=== PATIENT | male | born 1960 | race Caucasian/White ===

== ENCOUNTER 2023-02-12 12:56 | Emergency (ER) | payer OTHER, SELFPAY ==
--- NOTE | 2023-02-12 12:58 | CT_ITS ---
FINAL REPORT TECHNIQUE: Axial images through the head was performed by computed tomography. Sagittal and coronal reformatted images were obtained and reviewed. This study was performed with techniques to keep radiation doses as low as reasonably achievable (ALARA). Individualized dose reduction techniques using automated exposure control or adjustment of mA and/or kV according to the patient's size were employed. CLINICAL HISTORY: fall, LOC FINDINGS: No abnormal density is seen. Ventricles are normal. There is no hemorrhage. No mass effect is seen. Bone windows show no evidence of fracture. IMPRESSION: No acute findings Reviewed, Interpreted and Dictated by Beth Choi MD Transcribed by Linnea Linares Authenticated and [facility]
--- NOTE | 2023-02-12 12:58 | ECG_ITS ---
APPROVED REPORT Exam: Resting ECG HR:63 bpm ECG Measurements Heart Rate 63 AXES NH 213 P 68 QRSd 165 QRS 60 QT 434 T 11 QTc 442 Conclusion SINUS RHYTHM WITH FIRST DEGREE AV BLOCK RIGHT BUNDLE BRANCH BLOCK [120+ ms QRS DURATION, UPRIGHT V1, 40+ ms S IN I/aVL/V4/V5/V6] ABNORMAL ECG UNCONFIRMED REPORT Electronically signed by : Julius Tam MD 02/13/2023 21:16:26
--- NOTE | 2023-02-12 12:59 | CT_ITS ---
FINAL REPORT CLINICAL HISTORY: fall, c spine injury FINDINGS: CTA HEAD TECHNIQUE: Thin section axial CT with contrast with 3D MIP reconstruction FINDINGS: No aneurysm is seen. Major intracranial vessels are patent without significant stenosis. . IMPRESSION: Unremarkable This study was performed using automated techniques to achieve radiation exposure as low as reasonably achievable Reviewed, Interpreted and Dictated by Beth Choi MD Transcribed by Linnea Linares Authenticated and [facility]
--- NOTE | 2023-02-12 12:59 | CT_ITS ---
FINAL REPORT CLINICAL HISTORY: fall, c spine injury FINDINGS: CT NECK ANGIO, WITHOUT AND WITH CONTRAST TECHNIQUE: Thin section axial CT with IV contrast supplemented with 3D MIP reconstruction NASCET criteria and technique was utilized during interpretation. FINDINGS: Aortic arch: Arch shows no significant narrowing. Great vessel origins are widely patent. Right carotid: No significant stenosis is seen of the cervical common or internal carotid artery. There is no evidence of dissection. Left carotid: No significant stenosis is seen of the cervical common or internal carotid artery. There is no evidence of dissection. Vertebrals: Left vertebral artery is dominant. No significant stenosis is present. IMPRESSION: No significant stenosis of the cervical carotid arteries. This study was performed using automated techniques to achieve radiation exposure as low as reasonably Reviewed, Interpreted and Dictated by Beth Choi MD Transcribed by Linnea Linares Authenticated and . [facility]
--- NOTE | 2023-02-12 12:59 | CT_ITS ---
FINAL REPORT TECHNIQUE: Thin section axial CT with sagittal reconstruction without contrast. This study was performed with techniques to keep radiation doses as low as reasonably achievable (ALARA). Individualized dose reduction techniques using automated exposure control or adjustment of mA and/or kV according to the patient's size were employed. CLINICAL HISTORY: fall, c spine injury with weakness FINDINGS: There are mild diffuse degenerative changes. There is grade 1 spondylolisthesis of C5 on 6 with facet subluxation on the right and facet dislocation on the left. There is a fracture of the left C6 inferior facet. Remaining levels show normal alignment. There is a small corner fracture of the anterior/superior C6 vertebral body. IMPRESSION: Right sided facet subluxation and left-sided facet dislocation at the C5-6 level. Small corner fracture of the anterior/superior C6 vertebral body. Reviewed, Interpreted and Dictated by Beth Choi MD Transcribed by Linnea Linares Authenticated and [facility]
[2023-02-12 13:05] VITALS: BP 179/94; PULSE 64; RESP 16; TEMP 36.1; O2SAT 100; BMI 26.2
--- NOTE | 2023-02-12 13:15 | PC.NURSE ---
Per , approved to CT patient without renal function results.
--- NOTE | 2023-02-12 13:15 | HMH.EDGENADL ---
Discharge Plan Disposition Patient Disposition: Xfer Intermediate Care Fac Referrals Follow up/Referrals: Provider,Referral, MD [Primary Care Provider] - See instructions Clinical Impressions Clinical Impression: Traumatic dislocation of facet joint between fifth and sixth cervical vertebrae, Fracture of cervical spine at C5-C7 level with spinal cord injury Stand Alone Forms Stand Alone Forms: Transfer Record - ED Instructions Patient Instructions: DI for Neck Pain Discharge ED Provider: Phil Apple General Adult HPI General Chief complaint: Neck Pain/Injury Stated complaint: NECK PAIN Time Seen by Provider: 02/12/23 12:58 Mode of Arrival: Family Vehicle Source of Information: Patient and Spouse Limitations: Physical Limitations Description of Symptoms (Recalled from ER Triage Doc. 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 C/o neck pain with bilateral UE weakness. Hx of ADHD History of Present Illness HPI narrative: This is a 63-year-old male with history of ADHD presenting with neck pain. Patient states that he dove into a pool just prior to arrival and hit his head on the bottom. He states that his chin hit his chest and he saw a white light, but is not sure if he lost consciousness. Had immediate pain, numbness in the upper and lower extremities. Did not urinate on himself. States that he feels he is weak in his upper and lower extremities and is having some difficulty breathing. Denies chest pain, nausea or vomiting, vision changes, over headache, or any other complaints. Related Data Allergies Allergy/AdvReac Type Severity Reaction Status Date / Time No Known Allergies Allergy Verified 02/12/23 13:07 [facility] Disclaimer: The information contained in this section may have been updated after the patient was seen, as this information can be updated by other users. Medical History (Updated 02/12/23 @ 14:08 by Phil Apple MD) ADHD Social History Smoking Status: Never smoker alcohol intake: never current occupational status: employed Travel in the last 8 weeks: None ROS Obtained: Yes All systems reviewed & no additional complaints except as documented Physical Exam General General appearance: alert and anxious Head Head exam: atraumatic Eye Eye exam: Present PERRL and EOMI Neck Neck exam: Present other (Cervical collar in place from triage) Chest Chest inspection: Present normal inspection Respiratory Respiratory exam: Present normal lung sounds bilaterally; Absent respiratory distress or wheezes Cardiovascular Cardiovascular exam: Present normal rhythm and bradycardia Abdominal Exam Abdominal exam: Present soft; Absent distention, tenderness or guarding exam: Present other (No evidence of priapism) Extremities Exam Extremities exam: Present full ROM; Absent tenderness Back Exam Back exam: Absent vertebral tenderness Neurological Exam Neurological exam: Present alert, oriented X3, CN II-XII intact and motor sensory deficit (Sensation deficit bilateral upper and lower extremities (diminished). 4 out of 5 strength bilateral upper extremities) Medical Decision Making Medical Records Medical records reviewed: Yes I reviewed the patient's medical records. [place] Inquiry Pt receiving controlled substance: No [place] was queried for this patient: No Vital Signs: 02/12/23 13:05 02/12/23 14:12 02/12/23 15:31 Temperature 97 F L 97 F L 97 F L Temperature Source Oral Oral Oral Pulse Rate 62 68 Pulse Rate [Right] 64 Respiratory Rate 16 13 16 Blood Pressure 183/100 H 175/100 H Blood Pressure [Right Arm] 179/94 H Blood Pressure Mean [Right Arm] 122 02 Sat by Pulse Oximetry 100 100 97 Oxygen Delivery Method Room Air Room Air Room Air 02/12/23 15:49 Temperature 97 F L Temperature Source Oral Pulse Rate 68 Pulse Rate [Right] Respiratory Rate 16 Blood Pressure 175/100 H Blood Pressure [Right Arm] Blood P
--- NOTE | 2023-02-12 13:18 | PC.NURSE ---
Family at bedside
[2023-02-12 13:23] LABS: Basophils # 0.1 K/mm3 (0-0.2); Basophils % 0.7 % (0.1-2.0); Eosinophils # 0.2 K/mm3 (0.0-0.4); Eosinophils % 2.7 % (0.1-12.0); Hematocrit 49.3 % (42.0-52.0); Hemoglobin 15.7 g/dL (14.1-18.0); Lymphocytes # 2.7 K/mm3 (0.7-4.5); Lymphocytes % 33.1 % (10-50); Mean Corpuscular HGB Conc 31.8 g/dL (31.8-35.4); Mean Corpuscular Hemoglobin 29.6 pg (27.0-31.2); Mean Platelet Volume 8.6 fl (7.4-10.4); Monocytes # 0.5 K/mm3 (0.1-1.0); Monocytes % 6.4 % (1.7-9.3); Neutrophils # 4.7 K/mm3 (1.8-7.8); Neutrophils % 57.1 % (37.0-80.0); Platelet Count 289 K/mm3 (142-424); Red Cell Distribution Width 13.1 % (11.5-17.5); White Blood Count 8.2 K/mm3 (4.8-10.8)
[2023-02-12 13:34] LABS: Alanine Aminotransferase 39 U/L (12-78); Albumin Level 4.5 g/dl (3.5-5.0); Albumin/Globulin Ratio 1.6 (1.1-1.8); Alkaline Phosphatase 80 U/L (38-126); Anion Gap 12.3 mEq/L (5-15); Aspartate Amino Transferase 45 U/L (17-59); Blood Urea Nitrogen 17 mg/dl (9-20); Carbon Dioxide 21 mmol/L (22.0-30.0); Chloride 110 mmol/L (98-107); Creatinine Clearance Estimated 101 mL/min (50-200); Estimated Glomerular Filt Rate 85 ml/min (>60); GFR (African American) 103 ML/MIN (>60); Globulin 2.9 g/dL (1.3-3.2); Glucose 155 mg/dl (74-100); Potassium 3.3 mmoL/L (3.5-5.1); Sodium 140 mmol/L (136-145); Total Protein,Serum 7.4 g/dl (6.3-8.2)
--- NOTE | 2023-02-12 13:36 | PC.NURSE ---
From CT. Pt log rolled and spine board removed. MD to bedside to evaluate remaining spine. Pt tolerated well. Family remains at bedside. Case Management notified of need for STAT MRI C-Spine. Natalia'd per CT. Dottie notified with need of MRI.
--- NOTE | 2023-02-12 13:39 | MR_ITS ---
FINAL REPORT TECHNIQUE: Multiplanar MR without contrast CLINICAL HISTORY: CERVICAL PAIN. ABNORMAL CT SCAN COMPARISON: CT C-spine earlier same day FINDINGS: There is 4 mm of anterolisthesis of C5 on C6 considered acute posttraumatic in nature. There is associated avulsion fracture anterior superior corner of C6 vertebra with disruption of the anterior longitudinal ligament. There is right-sided facet subluxation with left-sided facet dislocation with small fracture. There is marked edema in the posterior soft tissues with probable disruption of the C5-6 interspinous ligament. No cord contusion or epidural hematoma. C2-3: Unremarkable C3-4: Moderate annular disc bulge with facet overgrowth. Moderate right and mild left neuroforaminal narrowing. Mild central canal stenosis. C4-5: Mild annular disc bulge. Moderate facet arthropathy. Mild central canal stenosis. Moderate bilateral neuroforaminal narrowing. C5-6: Moderate central canal stenosis. Severe bilateral neuroforaminal narrowing. C6-7: Moderate annular disc bulge asymmetric to the right. Mild central canal stenosis. Moderate to severe bilateral neuroforaminal narrowing. C7-T1: Mild annular disc bulge. IMPRESSION: Acute posttraumatic changes at C5-6 as above with disruption of the anterior longitudinal ligament and acute facet changes as above. No evidence of epidural hematoma or cord contusion. However, there is multilevel canal stenosis most prominent at C5-6 Reviewed, Interpreted and Dictated by Beth Choi MD Transcribed by Vaishnavi Loyola Authenticated and [facility]
--- NOTE | 2023-02-12 13:41 | PC.NURSE ---
pc to [facility] transfer to initiate transfer
--- NOTE | 2023-02-12 13:47 | PC.NURSE ---
Patient reports continued pain despite medication administration. MD notified. VO received Morphine 4mg IVP.
--- NOTE | 2023-02-12 13:53 | PC.NURSE ---
Pt reports bilateral shoulder pain. MD notified.
--- NOTE | 2023-02-12 13:57 | PC.NURSE ---
NICOLÁS DOTSON speaking with [facility]surgery
--- NOTE | 2023-02-12 14:09 | XR_ITS ---
FINAL REPORT CLINICAL HISTORY: MR clearance FINDINGS: Orbits Two views were obtained. The paranasal sinuses are clear. There is no evidence of metallic foreign body in the region of the orbits. IMPRESSION: No foreign body identified. Reviewed, Interpreted and Dictated by Beth Choi MD Transcribed by Linnea Linares Authenticated and [facility]
--- NOTE | 2023-02-12 14:09 | PC.NURSE ---
Report called to ELISEO Ludwig. Phillip
--- NOTE | 2023-02-12 14:10 | PC.NURSE ---
MD notified for need to clear orbits for MRI. XR placed.
[2023-02-12 14:12] VITALS: BP 183/100; PULSE 62; RESP 13; TEMP 36.1; O2SAT 100
--- NOTE | 2023-02-12 14:37 | PC.NURSE ---
pt to MRI, smokehouse operator with pt to maintain c-spine immobilization.
--- NOTE | 2023-02-12 15:20 | PC.NURSE ---
Return from MRI. [facility] notified of need to transport.
--- NOTE | 2023-02-12 15:21 | PC.NURSE ---
contacted rad to request MRI be powershared to [facility] and also to request a dics of MRI images to send with pt for transfer
--- NOTE | 2023-02-12 15:30 | PC.NURSE ---
Return from MRI. Additional medication given for pain. Pt moved from MRI safe stretcher to ED stretcher. Pt remained on spine board during transfer. Slight improvement to sensation of bilateral UE.
[2023-02-12 15:31] VITALS: BP 175/100; PULSE 68; RESP 16; TEMP 36.1; O2SAT 97
--- NOTE | 2023-02-12 15:37 | PC.NURSE ---
PT ON BOARD WITH COLLAR AND HEAD BLOCKS IN PLACE FOR TRANSPORTATION TO ER
--- NOTE | 2023-02-12 15:42 | PC.NURSE ---
RADIOLOGY FIXING A DISK OF THE MRI AND HAS POWER SHARED IT TO [facility]
--- NOTE | 2023-02-12 15:44 | PC.NURSE ---
EMS HERE TO TRANSPORT PT
--- NOTE | 2023-02-12 15:46 | PC.NURSE ---
Report provided to EMS
[2023-02-12 15:49] VITALS: BP 175/100; PULSE 68; RESP 16; TEMP 36.1; O2SAT 97
--- NOTE | 2023-02-12 15:58 | PC.NURSE ---
Spontaneous void, 300 ml. No urinary incontinence during ED visit. Info provided to EMS.
== END 2023-02-12 16:01 ==
PROVIDERS: Emergency Provider Emergency Medicine
DX: S13.161A Dislocation of C5/C6 cervical vertebrae, initial encounter (principal); S12.500A Unspecified displaced fracture of sixth cervical vertebra, initial encounter for closed fracture; F90.9 Attention-deficit hyperactivity disorder, unspecified type; W16.522A Jumping or diving into swimming pool striking bottom causing other injury, initial encounter
CPT/HCPCS: 70200; 70450; 70496; 70498; 72125; 72141; 76376; 80053; 85025; 93005; 96361; 96374; 96375; 96376; 99291; J2405; Q9967